=== PATIENT | male | born 1970 | race American Indian/Alaskan Native ===

== ENCOUNTER 2017-12-09 12:45 | Emergency (ER) | payer BC, OTHER ==
[2017-12-09 13:21] LABS: ANION GAP 10.3; CHLORIDE,CL 105 mmol/L (101-111); SODIUM,NA 139 mmol/L (135-145)
[2017-12-09 13:28] LABS: ACETAMINOPHEN < 10
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
== END 2017-12-09 14:20 | disposition home or self-care (01) ==
LOC: DL.ED 12:45
DX: F11.20 Opioid dependence, uncomplicated (principal); F17.210 Nicotine dependence, cigarettes, uncomplicated; Z88.5 Allergy status to narcotic agent
CPT/HCPCS: 36415; 80053; 80305; 81001; 83735; 85025; 99283; 99284; G0480